=== PATIENT | female | born 1935 | race Caucasian/White ===

== ENCOUNTER → 2024-04-22 15:25 | Outpatient (REF) | payer MEDICARE, OTHER, SELFPAY | LOC: RCS 15:25 | PROVIDERS: ATTENDING PHYSICIAN Family Medicine | DX: I35.0 Nonrheumatic aortic (valve) stenosis (principal); R00.2 Palpitations | CPT/HCPCS: 93005; 93306 ==

== ENCOUNTER → 2024-07-17 14:42 | Outpatient (REF) | payer MEDICARE, OTHER, SELFPAY | LOC: RAD 14:42 | PROVIDERS: ATTENDING PHYSICIAN Family Medicine | DX: R06.09 Other forms of dyspnea (principal) | CPT/HCPCS: 71046 ==

== ENCOUNTER → 2024-07-18 09:47 | Outpatient (REF) | payer MEDICARE, OTHER, SELFPAY ==
[2024-07-18 10:06] LABS: % Basophils 0.3 % (0-2); % Eosinophils 2.7 % (0-6); % Immature Granulocytes 0.2 % (0-0.5); % Lymphocytes 26.4 % (20.5-51.1); % Monocytes 9.3 % (1.7-9.3); % Neutrophils 61.1 % (42.2-75.2); Absolute Eosinophils 0.2 10^3/uL (0-0.7); Absolute Lymphocytes 1.5 10^3/uL (1.2-3.4); Absolute Monocytes 0.5 10^3/uL (0.1-0.6); Absolute Neutrophils 3.6 10^3/uL (1.4-6.5); Hematocrit 39.8 % (37.0-47.0); Hemoglobin 13.4 g/dL (12.0-16.0); Mean Corp Hgb Conc. 33.7 g/dL (33.0-37.0); Mean Corpuscular Hgb 31.2 pg (27.0-31.0); Mean Corpuscular Volume 92.6 fL (81.0-99.0); Mean Platelet Volume 10.2 fL (7.4-10.4); Nucleated Red Blood Cells % 0 %; Platelet Count 190 10^3/uL (130-400); Red Cell Dist. Width 14.1 % (11.5-14.5); White Blood Cell Count 5.8 10^3/uL (4.8-10.8)
[2024-07-18 10:35] LABS: ALT (SGPT) 22 U/L (0-35); AST (SGOT) 34 U/L (14-36); Albumin 3.7 g/dl (3.5-5.0); Alkaline Phosphatase 64 U/L (38-126); Blood Urea Nitrogen 35 mg/dl (7-17); Calcium 9.3 mg/dl (8.4-10.2); Carbon Dioxide 27 mmol/L (22-30); Chloride 105 mmol/L (98-107); Glucose 136 mg/dl (70-99); Potassium 4.3 mmol/L (3.5-5.1); Sodium 142 mmol/L (135-145); Total Bilirubin 1.6 mg/dl (0.2-1.3); Total Protein 6.2 g/dl (6.3-8.2); eGFR > 60.00
== END ==
LOC: HWRAD 09:47
PROVIDERS: ATTENDING PHYSICIAN Family Medicine; FAMILY PHYSICIAN Family Medicine
DX: R50.9 Fever, unspecified (principal); R06.02 Shortness of breath
CPT/HCPCS: 36415; 71260; 80053; 85025; Q9967

== ENCOUNTER 2024-07-23 19:51 | Inpatient (IN) | payer MEDICARE, OTHER, SELFPAY ==
[2024-07-23 16:38] VITALS: BP 204/67
--- NOTE | 2024-07-23 16:38 | ED.GENMED ---
ED Provider Triage
<Lolly Vincent PA-C - Last Filed: 07/23/24 16:40>
-
Patient seen by provider in Triage?: Seen in Triage
88-year-old female coming from her primary care office for episodes of shortness of breath off and on for the last month.
He did an EKG in the office and there is concern that she is in heart block.
Patient is ultimately asymptomatic currently. She is not having any chest pain.
Her family doctor spoke with Dr. Lane regarding her EKG that was concerning
A medical screening examination has been initiated by a qualified medical provider. Based on the assessment performed at this time, it has been determined that an emergent medical condition may exist and the patient has been informed that further
medical evaluation and possible additional diagnostic testing may be needed.
HPI: This is a medical evaluation conducted in person to initiate diagnostic evaluation and provide initial therapeutics. Please see further documentation by the treating clinician.
GENERAL: Alert , in no apparent distress
ENT: No visible abnormalities
LUNGS: No acute respiratory distress
NEUROLOGICAL: Alert and oriented
SKIN: Skin intact. No visible changes.
MUSCULOSKELETAL: Moving extremities normally
PSYCH: Normal and appropriate interaction.
EKG reviewed, appears like third-degree heart block. Patient is hypertensive, asymptomatic. Bradycardic. Will bring her immediately to a room.
History of Present Illness
<Lolly Vincent PA-C - Last Filed: 07/23/24 16:40>
General
Chief Complaint: Cardiac Symptoms
Source: patient
Exam Limitations: none
Time Seen by Provider: 07/23/24 16:59
Nursing documentation reviewed up to this point in time: agreed with
<Kendrick Brush DO - Last Filed: 07/23/24 20:15>
History of Present Illness
History of Present Illness:
Patient is a 88-year-old female who was sent to the emergency department by her primary care physician for bradycardia and third-degree heart block. Patient has noted over the past couple of months of increasing fatigue especially with exertion.
Patient denies any fever or chills, nasal congestion, sore throat or cough. Patient has noted some wheezing in the morning but other than that no problems. Patient denies any chest pain or palpitations. Patient denies shortness of breath.
Patient denies any GI or symptoms. Patient denies any lower extremity swelling. Patient past medical history is rather unremarkable and only takes Motrin and vitamin D.
Past History
<Kendrick Brush DO - Last Filed: 07/23/24 20:15>
Past History
ED Past Medical History: Asthma and Other (DJD)
Social History
Tobacco: Former smoker
Review of Systems
<Kendrick Brush DO - Last Filed: 07/23/24 20:15>
Review of Systems
All Other Systems: ROS reviewed and negative except as documented in HPI and ROS
Constitutional: Reports fatigue; Denies fever or chills
EENT: Reports no symptoms
Respiratory: Reports no symptoms
Cardiac: Reports no symptoms
ABD/GI: Reports no symptoms
: Reports no symptoms
Musculoskeletal: Reports no symptoms
Skin: Reports no symptoms
Neurological: Reports no symptoms
Hematologic/Lymphatic: Reports no symptoms
Psychiatric: Reports no symptoms
Phy Exam
<Kendrick Brush DO - Last Filed: 07/23/24 20:15>
Physical Exam
Physical Exam:
Physical Exam
General: No apparent distress, alert and appropriate, elderly and frail, well hydrated
HENT: Normocephalic, supple with no lymphadenopathy, no thyromegaly
Eyes: Clear sclera, conjuctiva without injection
Heart: Regular rhythm and bradycardic rate. No S3, S4. Grade 3/6 holosystolic harsh murmur heard best at the base.. No NVD
Lungs: No respiratory distress, no stridor, lung sounds clear and equal bilaterally
Abdomen: Soft, nontender, no organomegaly, no CVA tenderness, BS good
Neuro: Alert and oriented x 3, CN II - XII intact, no motor focality, no cerebellar dysfunction
Skin: no rash
Psychiatric: well kept. interactive and cooperative
Extremities: No cyanosis, tenderness. +1-2 pitting edema pretibially, ankles and feet bilaterally
Musculoskeletal: Significant thoracic kyphoscoliosis
Course
<Lolly Vincent PA-C - Last Filed: 07/23/24 16:40>
Orders/Labs/Results
Orders:
Orders
07/23/24 16:27
EKG [Electrocardiogram (*1)] Urgent
Reason for Study: Other
Other Reason for Exam: abnormal EKG
EKG- Treatment ONCE
07/23/24 16:59
Complete Blood Count/With Diff Urgent
Comprehensive Metabolic Panel Urgent
TSH Urgent
Troponin I Urgent
07/23/24 17:29
PTT Urgent
07/23/24 19:00
Consult Cardiology [CARDIOLOGY CONSULT] Routine
Consulting Provider: Glenn Zee
Was physician already notified: Yes
07/23/24 19:08
Admit/Transfer Patient As Directed
Co-Sign Provider:
Level of Care: Inpatient admission
Assign to:: IVU
Physician / Group: Luis Felipe Vasquez
Diagnosis: Complete Heart Block
Reason for Hospitalization: Complete Heart Block
Expected length of stay greater than two midnights?: Yes
ELOS- Estimated Length of Stay in days: 3
I certify the patient meets the requirements for IP care: Yes
07/23/24 19:09
Code Status As Directed
Resuscitation Status: Full Code
PRN Pain Medication Management As Directed
May give lesser potent ordered pain med per pt: Yes
preference::
Protocol:: Medication orders for pain may be administered in a
manner that supports deferring to patient preference
when the pt is:
- Requesting an ordered lesser potent pain medication.
Least to most potent pain medications are defined
as: acetaminophen < NSAID < tramadol < opioids
(morphine, oxycodone, hydromorphone).
- Requesting a lesser dose of the same medication IF
ORDERED.
- Requesting a less intrusive route of administration
if both routes are prescribed by the provider (PO <
IV).
07/24/24 Breakfast
NPO
Allow oral meds: Yes
Allow clear liquids: Sips of Clears
Abnormal Lab Results
07/23/24 07/23/24
16:59 17:29
MCHC 32.0 L g/dL
(33.0-37.0)
APTT 35.5 H Sec
(23.4-35.0)
BUN 32 H mg/dl
(7-17)
07/23/24 16:59
07/23/24 16:59
Vital Signs
Initial and Last Documented VS:
Initial Vital Signs
Temp Pulse Resp BP Pulse Ox
98.2 F 43 16 204/67 99
07/23/24 16:38 07/23/24 16:38 07/23/24 16:38 07/23/24 16:38 07/23/24 16:38
Last Documented Vital Signs
Temp Pulse Resp BP Pulse Ox
98.2 F 54 18 183/55 96
07/23/24 16:38 07/23/24 19:45 07/23/24 19:45 07/23/24 17:01 07/23/24 19:45
<Kendrick Brush DO - Last Filed: 07/23/24 20:15>
Orders/Labs/Results
Orders:
Orders
07/23/24 16:27
EKG [Electrocardiogram (*1)] Urgent
Reason for Study: Other
Other Reason for Exam: abnormal EKG
EKG- Treatment ONCE
07/23/24 16:59
Complete Blood Count/With Diff Urgent
Comprehensive Metabolic Panel Urgent
TSH Urgent
Troponin I Urgent
07/23/24 17:29
PTT Urgent
07/23/24 19:00
Consult Cardiology [CARDIOLOGY CONSULT] Routine
Consulting Provider: Glenn Zee
Was physician already notified: Yes
07/23/24 19:08
Admit/Transfer Patient As Directed
Co-Sign Provider:
Level of Care: Inpatient admission
Assign to:: IVU
Physician / Group: Luis Felipe Vasquez
Diagnosis: Complete Heart Block
Reason for Hospitalization: Complete Heart Block
Expected length of stay greater than two midnights?: Yes
ELOS- Estimated Length of Stay in days: 3
I certify the patient meets the requirements for IP care: Yes
07/23/24 19:09
Code Status As Directed
Resuscitation Status: Full Code
PRN Pain Medication Management As Directed
May give lesser potent ordered pain med per pt: Yes
preference::
Protocol:: Medication orders for pain may be administered in a
manner that supports deferring to patient preference
when the pt is:
- Requesting an ordered lesser potent pain medication.
Least to most potent pain medications are defined
as: acetaminophen < NSAID < tramadol < opioids
(morphine, oxycodone, hydromorphone).
- Requesting a lesser dose of the same medication IF
ORDERED.
- Requesting a less intrusive route of administration
if both routes are prescribed by the provider (PO <
IV).
07/24/24 Breakfast
NPO
Allow oral meds: Yes
Allow clear liquids: Sips of Clears
Abnormal Lab Results
07/23/24 07/23/24
16:59 17:29
MCHC 32.0 L g/dL
(33.0-37.0)
APTT 35.5 H Sec
(23.4-35.0)
BUN 32 H mg/dl
(7-17)
07/23/24 16:59
07/23/24 16:59
Vital Signs
Initial and Last Documented VS:
Initial Vital Signs
Temp Pulse Resp BP Pulse Ox
98.2 F 43 16 204/67 99
07/23/24 16:38 07/23/24 16:38 07/23/24 16:38 07/23/24 16:38 07/23/24 16:38
Last Documented Vital Signs
Temp Pulse Resp BP Pulse Ox
98.2 F 54 18 183/55 96
07/23/24 16:38 07/23/24 19:45 07/23/24 19:45 07/23/24 17:01 07/23/24 19:45
<Kendrick Brush, DO - Last Filed: 07/23/24 20:15>
*Radiology
Radiology exam reviewed: other (na)
*Pulse Oximetry
Patient hypoxic: no
*EKG
Interpreted by ED Provider?: Yes
EKG Intrepretation Date: 07/23/24
EKG Intrepretation Time: 17:51
Interpretation: abnormal
Comparison EKG: no comparison EKG present
Heart Rate: 42
Rate: bradycardiac
Rhythm: other (Third-degree heart block)
[place]: normal axis
Interval: normal QT interval
QRS Pattern: normal QRS
Ischemia: no ischemia
*Dry Heat Room Attendant Interpretation
Rate: bradycardiac
Interpretation: abnormal
Heart Rate: 45
Rhythm: other (Third-degree heart block)
*Critical Care Note
Total Time (30-74mins, 75-104mins- exclusive of procedures): 35 minutes
ED Attending Note
<Lolly Vincent PA-C - Last Filed: 07/23/24 16:40>
-
Portions of this chart may have been created with voice recognition software.� Occasional wrong word or��sound alike� substitutions may have occurred due to the inherent limitations of voice recognition software.
Discharge Plan
Departure
Patient Disposition: Admit
Date of Disposition: 07/23/24
Time of Disposition: 17:53
Admit to: IVU
Admit to doctor: Hospitalist
Presentation/result/management discussed w/ accepting MD/DO: [employer] Net Developer
Patient with high blood pressure during this ER visit?: Yes
Condition: Fair
Covid-19: Not Applicable
Discharge Problem:
Third degree heart block
Interventions
Interventions:
*Risk Screen - Suicide Last Done: 07/23/24 16:40
*General Assessment Last Done: 07/23/24 16:51
*Neglect/Abuse Screening Last Done: 07/23/24 16:40
ED- Fall Risk Assessment Last Done: 07/23/24 16:51
*ED COVID-19 Vaccine History Last Done: 07/23/24 17:24
ED- Pulmonary Assessment Last Done: 07/23/24 16:51
ED- Cardiac Assessment Last Done: 07/23/24 16:51
[2024-07-23 16:50] VITALS: BP 157/67
[2024-07-23 17:01] VITALS: BP 183/55
[2024-07-23 17:09] LABS: % Basophils 0.3 % (0-2); % Eosinophils 1.1 % (0-6); % Immature Granulocytes 0.3 % (0-0.5); % Monocytes 8.1 % (1.7-9.3); % Neutrophils 68.2 % (42.2-75.2); Absolute Eosinophils 0.1 10^3/uL (0-0.7); Absolute Lymphocytes 1.4 10^3/uL (1.2-3.4); Absolute Monocytes 0.5 10^3/uL (0.1-0.6); Absolute Neutrophils 4.4 10^3/uL (1.4-6.5); Hematocrit 43.1 % (37.0-47.0); Hemoglobin 13.8 g/dL (12.0-16.0); Mean Corpuscular Hgb 30.2 pg (27.0-31.0); Mean Corpuscular Volume 94.3 fL (81.0-99.0); Mean Platelet Volume 10.3 fL (7.4-10.4); Nucleated Red Blood Cells % 0 %; Platelet Count 208 10^3/uL (130-400); Red Blood Cell Count 4.57 10^6/uL (4.20-5.40); Red Cell Dist. Width 14.2 % (11.5-14.5); White Blood Cell Count 6.4 10^3/uL (4.8-10.8)
[2024-07-23 17:21] LABS: ALT (SGPT) 22 U/L (0-35); AST (SGOT) 32 U/L (14-36); Albumin 4.4 g/dl (3.5-5.0); Alkaline Phosphatase 85 U/L (38-126); Blood Urea Nitrogen 32 mg/dl (7-17); Calcium 9.6 mg/dl (8.4-10.2); Carbon Dioxide 25 mmol/L (22-30); Chloride 104 mmol/L (98-107); Glucose 99 mg/dl (70-99); Potassium 4.5 mmol/L (3.5-5.1); Sodium 142 mmol/L (135-145); Total Bilirubin 1.1 mg/dl (0.2-1.3); eGFR > 60.00
[2024-07-23 17:33] LABS: Troponin I 0.025 ng/ml
[2024-07-23 17:48] LABS: APTT 35.5 Sec (23.4-35.0)
--- NOTE | 2024-07-23 17:52 | HPS.HSE ---
Family Physician
-
Family Physician: Pauline Hill
Chief Complaint
-
Abnormal EKG
History of Present Illness
Patient is a 88-year-old female with past medical history significant for hypercholesteremia, mitral valve regurgitation, and carotid artery insufficiency who presented to [facility] ED from primary care office that obtained an EKG that showed
concern for heart block. 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 A week ago on Monday when leaving hospital and walking to
car she stated she noticed the shortness a breath again and decided to see primary care, they saw her that day and ordered Chest X-ray and Chest CT which resulted with no concerns. At followup appoint with primary care today, they performed a EKG
that physician had concern for heart block so requested patient go to ED for evaluation. Patient denies any fever, chill, cough, chest pain, plapitations, dizziness, nausea, vomiting, constipation, diarrhea or urinary symptoms.
Medical History
Past Medical History
Past Medical History: Reports Other
Additional Past Medical History:
hypercholesteremia
mitral valve regurgitation
carotid artery insufficiency
Osteoarthritis
Past Surgical History: Reports Other
Additional Past Surgical History:
Total left knee replacement
Right hip replacement
Social History
Tobacco: Former Smoker (quit 62 years ago)
Alcohol: Occasional
Drug: None
Living: With Family
Employment: Retired
Family History
Family History: Not pertinent
Allergies / Home Medications
Allergies reflects when Allergies were last updated in [facility].
Home Medications with original date entered in [facility]
Allergy/Medication List:
Allergies
Allergy/AdvReac Type Severity Reaction Status Date / Time
No Known Allergies Allergy Unverified 04/11/17 08:56
Home Medications
cholecalciferol (vitamin D3) 25 mcg (1,000 unit) tablet 25 mcg PO DAILY 07/23/24
ibuprofen 200 mg tablet 200 mg PO HS 07/23/24
Review of Systems
-
History Source: Patient
Constitutional: Reports No Symptoms
EENT: Reports No Symptoms
Respiratory: Reports Other (shortness of breath)
Cardiac: Reports No Symptoms
Abdomen/GI: Reports No Symptoms
: Reports No Symptoms
Musculoskeletal: Reports No Symptoms
Skin: Reports No Symptoms
Neurological: Reports No Symptoms
Endocrine: Reports No Symptoms
Hematologic/Lymphatic: Reports No Symptoms
Psych: Reports No Symptoms
Physical Exam
Vital Signs
Vital Signs
Temp Pulse Resp BP Pulse Ox
98.2 F 47 15 183/55 98
07/23/24 16:38 07/23/24 17:45 07/23/24 17:45 07/23/24 17:01 07/23/24 17:45
Physical Exam
General: Well Developed, Well Nourished, No Apparent Distress, Comfortable and Conversant
HEENT: NormoCephalic, Moist mucous membranes, Atraumatic, [place] Conjunctivae, Nose Appears Normal and Ears Appear Normal
Respiratory: Clear and Non Labored Respirations; No Wheezes, Rales, Rhonchi or Crackles
Cardiac: S1/S2, Regular Rhythm and Murmur; No Rub or Gallop
GI: Soft, Non Tender, Non Distended and Normal Bowel Sounds; No Organomegaly
Rectal: Deferred by Provider
Genito-urinary: No costovertebral tender
Musculoskeletal: No Clubbing, No Cyanosis and No Edema
Skin: Warm and IV/Catheter Site; No Rash
Neuro: Awake, AO x 3, Nonfocal/grossly intact and Cranial Nerves Intact
Hematologic/Lymphatic: No Lymphadenopathy
Psych: Calm and Intact Judgment/Insight
Laboratory Results
-
07/23/24 16:59
07/23/24 16:59
Laboratory Results
Total Bilirubin 1.1 mg/dl (0.2-1.3) 07/23/24 16:59
AST 32 U/L (14-36) 07/23/24 16:59
ALT 22 U/L (0-35) 07/23/24 16:59
Alkaline Phosphatase 85 U/L (38-126) 07/23/24 16:59
Troponin I 0.025 ng/ml 07/23/24 16:59
Data Reviewed
-
Medical Tests (Nuc Med, Echo, EKG etc): Report Reviewed by me (EKG: SINUS RHYTHM with Type 2 second degree AV block mostly 2:1 conduction, junctioinal escape is present CANNOT RULE OUT ANTERIOR INFARCT , AGE UNDETERMINED)
Lab Data: Labs Reviewed by me
Impression/Plan
-
IMPRESSION/PLAN:
#Complete Heart block
EKG in primary office concerning for heart block
EKG: SINUS RHYTHM with Type 2 second degree AV block mostly 2:1 conduction,
junctioinal escape is present
CANNOT RULE OUT ANTERIOR INFARCT , AGE UNDETERMINED
- Admit to IVU
- Consult Cardiology (CBC)
- NPO after midnight for PPM
#Osteoarthritis
- uses ibuprofen HS at home
- PRN Tylenol
#Hypercholesteremia
#Mitral valve regurgitation
#Carotid artery insufficiency
Full Code
DVT Prophylaxis: SCDs
[2024-07-23 17:56] LABS: TSH 3.05 uIU/ml (0.47-4.68)
--- NOTE | 2024-07-23 18:42 | CON.CAR ---
Consultation
Consultation Request
Date/Time Consultation Requested: 07/23 17:00
Date/Time Consultation Performed: 07/23 18:30
Requesting Provider: Kendrick Brush MD
Performing Provider: Glenn Zee MD
Reason for Consultation: complete heart block
Medical History
-
Chief Complaint: Dyspnea on exertion
History of Present Illness:
Elli Belcher is an 88-year-old woman with a past medical history of hyperlipidemia and moderate aortic stenosis.
She has been experiencing dyspnea on exertion for the past month and was undergoing workup with her PCP. It was thought to be possibly due to pneumonia given low-grade fevers. Today she presented for PCP follow-up and was noted to have a low heart
rate. Twelve-lead ECG showed complete heart block and she was sent to the ER for admission.
Past Medical History
Past Medical History: Hypercholesterolemia and Valvular Disease (Moderate aortic stenosis, mild to moderate mitral regurgitation)
Social History
Tobacco: Non-Smoker
Employment: Retired
Family History
Family History: Reviewed & Not Pertinent
Allergies / Home Medications
Allergy/AdvReac Type Severity Reaction Status Date / Time
No Known Allergies Allergy Unverified 04/11/17 08:56
�Medication �Instructions �Recorded �Confirmed �Type
cholecalciferol (vitamin D3) 25 25 mcg PO DAILY 07/23/24 07/23/24 History
mcg (1,000 unit) tablet
ibuprofen 200 mg tablet 200 mg PO HS 07/23/24 07/23/24 History
Review of Systems
-
All other systems: Negative unless noted
Physical Exam
Vital Signs
Temp Pulse Resp BP Pulse Ox
98.2 F 47 15 183/55 98
07/23/24 16:38 07/23/24 17:45 07/23/24 17:45 07/23/24 17:01 07/23/24 17:45
Lab Results
07/23/24 16:59
07/23/24 16:59
Troponin I 0.025 ng/ml 07/23/24 16:59
ECG: Complete heart block with narrow junctional escape, poor R wave progression
Physical Exam
General: Well Developed and Well Nourished
HEENT: Normocephalic and Anicteric
Respiratory: Clear and Non Labored Respirations
Cardiac: S1/S2, Regular Rhythm (Bradycardia) and Murmur (2/6 harsh systolic murmur); Negative Peripheral Edema or JVD
Breast: Deferred by me
Musculoskeletal: Negative Edema
Skin: Warm and Dry
Neuro: AO x 3
Psych: Calm
Impression / Plan
-
Elli goddard is an 88-year-old female with hyperlipidemia and moderate aortic stenosis who presents with dyspnea on exertion, found to have complete heart block.
Complete heart block
-She is stable with a narrow junctional escape rhythm. She has dyspnea on exertion but is otherwise asymptomatic.
-No reversible causes identified. TSH normal. No risk factors for Lyme disease.
-We will plan for PPM tomorrow
-N.p.o. past midnight
-Continue to monitor on telemetry
-If overnight she developed symptoms including lightheadedness or syncope or if she becomes hypotensive, we will do an emergent temporary pacing wire but as of now she does not have an indication for this
Moderate aortic stenosis: present on admission, stable
Data Reviewed
-
EKG: Tracing Personally Visualized and interpreted, Discussed with Physician, Discussed with Patient and Discussed with Family
Medical Tests (Nuc Med, Echo etc): Report Reviewed by me
Labs: Labs Reviewed by me, Discussed with Physician, Discussed with Patient and Discussed with Family
Old Records: Reviewed
--- NOTE | 2024-07-23 19:27 | W.PN.UPDATE ---
Update Note
Progress Note Update
This note serves as an addendum to the H&P by bilingual research interviewer KELLI Ese Woods
HPI
88F HX HLD, MVR, carotid artery insufficiency seen at ER:
- PCP office visit EKG that showed concern for heart block with HR 40s
- reports progressive dyspnea with exertion.
- had CXR and Chest CT resulted with no concerns.
- At followup appoint with primary care today, they performed a EKG that physician had concern for heart block sent in to ED
ROS
Patient denies any fever, chill, cough, chest pain, plapitations, dizziness, nausea, vomiting, constipation, diarrhea or urinary symptoms.
PHX; as above
Vital Signs
Temp Pulse Resp BP Pulse Ox
98.2 F 64 17 183/55 97
07/23/24 16:38 07/23/24 18:30 07/23/24 18:30 07/23/24 17:01 07/23/24 19:00
PE
Gen: NAD, well preserved , well kempt
HEENT: anicteric
Neck: supple
Lungs: CTA
Cor: RRR S1 S2
Abdomen: soft benign
CONSUMER LOAN OFFICER: AAO3 NFND
MS: no edema
Psych: nl mood and nl affect
Data
Unremarkable CBC and CMP
NEG TPNI
Nl TSH
EKG
SINUS RHYTHM with Type 2 second degree AV block mostly 2:1 conduction,
junctional escape is present
CANNOT RULE OUT ANTERIOR INFARCT , AGE UNDETERMINED
ABNORMAL ECG
WHEN COMPARED WITH ECG OF 22-APR-2024 15:39,
High grade AV block is now present
VENT. RATE HAS DECREASED BY 40 BPM
MINIMAL CRITERIA FOR ANTERIOR INFARCT ARE NOW PRESENT
QT HAS SHORTENED
04/22/24 ECHO
LV ejection fraction is 60%
Stage I diastolic dysfunction
Mild to moderate mitral regurgitation.
Moderately dilated left atrium
Moderate aortic stenosis
The aortic valve by the Continuity equation is calculated at 0.9 cm sq using an LVOT diameter of 1.7 cm.
ASSESSMENT & PLAN
Complete heart block
- Nl TSH
- associated with [place] but otherwise asymptomatic.
- No reversible causes
- PPM per Card
- this NPO after MN
- If she become symptomatic such as presyncope, syncope, hypotensive for temper pacing per Card
- CBC card consult appreciated
Moderate aortic stenosis
Mild to moderate mitral regurgitation.
- present on admission, stable
HX Osteoarthritis
- uses ibuprofen HS at home
- PRN Tylenol
HX Hypercholesteremia : Not on statin
HX Carotid artery insufficiency
DVT Px: SCD
Full code
IVU
[2024-07-23 21:30] VITALS: BP 167/56
[2024-07-23] MEDS: FLUSH (NSS) 1 FLUSH IV (22:35)
[2024-07-23 23:15] VITALS: BP 121/95
[2024-07-24] VITALS (18 sets, daily range): BP systolic 116–171; BP diastolic 43–110; BMI 23.6
--- NOTE | 2024-07-24 00:29 | PTCARENOTE ---
Rec'd pt as new admission from ED RN. Pt awake, alert. Able to walk from stretcher to bed. Denies complaints at this time, but does report hx of arthritic pain. Cardiac rhythm appears to be mobitz type two with periods of third degree AV block. HR
as low as 37 at times. Pt denies symptoms. SaO2 96% on RA. Pt NPO. Defibrillator pads at bedside. Call fernandes within reach.
--- NOTE | 2024-07-24 04:33 | DOWNTIME ---
There was a [employer] Client Dredge Lever Operator Downtime on 07/24/2024 from 0100 to 07/24/2024 at 0350. Downtime documentation of patient's care, including medication administrations, has been reconciled in the electronic record per guidelines. Refer to the
patient's paper chart under the miscellaneous tab to see printed paper medication records and downtime forms.
[2024-07-24 04:50] LABS: Hematocrit 40.4 % (37.0-47.0); Hemoglobin 13.4 g/dL (12.0-16.0); Mean Corp Hgb Conc. 33.2 g/dL (33.0-37.0); Mean Corpuscular Hgb 30.7 pg (27.0-31.0); Mean Corpuscular Volume 92.4 fL (81.0-99.0); Mean Platelet Volume 10.4 fL (7.4-10.4); Platelet Count 201 10^3/uL (130-400); Red Blood Cell Count 4.37 10^6/uL (4.20-5.40); Red Cell Dist. Width 14.1 % (11.5-14.5); White Blood Cell Count 6.1 10^3/uL (4.8-10.8)
[2024-07-24 05:04] LABS: Blood Urea Nitrogen 26 mg/dl (7-17); Calcium 9.2 mg/dl (8.4-10.2); Carbon Dioxide 21 mmol/L (22-30); Chloride 108 mmol/L (98-107); Estimated Creatinine Clearance 33 ml/min; Glucose 92 mg/dl (70-99); Potassium 4.8 mmol/L (3.5-5.1); Sodium 141 mmol/L (135-145); eGFR > 60.00
--- NOTE | 2024-07-24 07:44 | W.PN.CD ---
Today's Communication / Plan
-
- PPM planned for today
- Repeat ECHO
Impression / Plan
-
Elli goddard is an 88-year-old female with hyperlipidemia and moderate aortic stenosis who presents with dyspnea on exertion, found to have complete heart block.
Complete heart block
-She is stable with a narrow junctional escape rhythm in high 30s to 40s. Exertional symptoms but asymptomatic at rest.
-No reversible causes identified. TSH normal. No risk factors for Lyme disease.
-ECHO 04/22/2024 showed LVEF 60% - Moderate - mean gradient 20 mmHg.
-We will plan for PPM today
-N.p.o. past midnight
-Continue to monitor on telemetry
Moderate aortic stenosis:
present on admission, stable
Hypertension
- Related to CHB and bradycardia.
Physical Exam
Vital Signs/Labs
Vital Signs
Temp Pulse Resp BP Pulse Ox
98.4 F 74 23 162/43 95
07/24/24 07:32 07/24/24 06:00 07/24/24 06:02 07/24/24 06:02 07/24/24 00:00
07/23/24 07/24/24 07/25/24
06:59 06:59 06:59
Actual Weight 51.2 kg
07/24/24 04:27
07/24/24 04:27
APTT 35.5 Sec (23.4-35.0) H 07/23/24 17:29
TSH 3.05 uIU/ml (0.47-4.68) 07/23/24 16:59
LAB Results
07/23/24
16:59
Troponin I 0.025
Physical Exam
Constitutional: No acute distress and Comfortable
EENT: Anicteric and Moist mucous membranes
Cardiovascular: Rhythm & rate is regular, Pedal edema is absent and JVD pressure is normal
Respiratory: Respiratory effort normal, Lungs clear to auscul. and Wheeze Absent
GI: Soft, Non tender and Normal bowel sounds
Neuro/Psych: Alert, Oriented and AO x 3
Data Reviewed
-
Date of Service: July 24, 2024
Medical Decision Making: Reviewed Test Results
EKG: Tracing Personally Visualized and interpreted
Echo: Report Reviewed by me
Labs: Labs Reviewed by me
Old Records: Reviewed
--- NOTE | 2024-07-24 08:00 | PTCARENOTE ---
Patient received from manager shift. Patient resting comfortably in bed. AAO, VSS aside from Second Degree heart block. Patient scheduled for Pacemaker today and remains NPO. Call fernandes in reach.
--- NOTE | 2024-07-24 10:17 | W.PN.UPDATE ---
Update Note
Progress Note Update
Met with patient and her daughter at the bedside. She has a month of exertional dyspnea. She presented with complete heart block and narrow escape in the 30s to 40s. She is not asymptomatic when at rest. No recent syncope or near syncope. I
discussed with patient and daughter the left-sided pacemaker implantation with a 1 of thousand risk of and a 1% risk of pneumothorax tamponade infection or bleeding. She is slightly higher risk given her BMI and scoliosis. I did discuss that
with patient and daughter at the bedside. We will plan dual-chamber pacemaker implantation today. She is normal ejection fraction and moderate and can proceed without further testing. The patient signed informed consent and predevice orders
are in.
--- NOTE | 2024-07-24 13:47 | W.PN.HOSP.TC ---
Today's Communication/Plan
-
For pacemaker placement.
Assessment / Plan
Assessment / Plan
Impression:
Presentation with exertional dyspnea.
Complete heart block
Hypertension
Other conditions:
Moderate aortic stenosis.
Plan:
Symptomatic complete heart block.
Patient presents with exertional dyspnea baseline hemodynamically stable/hypertensive at rest.
Stable respiratory status.
Cardiology input appreciated
Patient is scheduled for permanent pacemaker placement
Reassess hemodynamics after
Moderate aortic stenosis
Recent echo with preserved EF.
Anticipated Discharge: 24 - 48 hours
Subjective/Interval History
-
Date of Service: July 24, 2024
Objective Data
-
Labs:
Laboratory Results
07/24/24
04:27
WBC 6.1
Hgb 13.4
Hct 40.4
Plt Count 201
Sodium 141
Potassium 4.8
Chloride 108 H
Carbon Dioxide 21 L
BUN 26 H
Creatinine 0.8
Glucose 92
Calcium 9.2
Vital Signs:
Vital Signs
Temp Pulse Resp BP Pulse Ox
98.0 F 74 23 162/43 96
07/24/24 11:20 07/24/24 06:00 07/24/24 06:02 07/24/24 06:02 07/24/24 12:11
I&O
07/23/24 07/24/24 07/25/24
06:59 06:59 06:59
Intake Total 120 / 120
Balance 120 / 120
Physical Exam
-
General: Well Developed and No Apparent Distress
HEENT: Normocephalic, Atraumatic and Moist Mucous Membranes
Respiratory: Clear to Auscultation
Cardiac: Regular Rhythm, S1/S2 and Murmur (Left sternal border, systolic); Negative Rub or Gallop
GI: Soft, Nontender, Nondistended and Normal Bowel Sounds; Negative Organomegaly
Rectal: Deferred by Provider
Musculoskeletal: No Clubbing, No Cyanosis and No Edema
Skin: Negative Rash
Neuro: Nonfocal/Grossly Intact
--- NOTE | 2024-07-24 14:24 | ITS.CL.PACE ---
[facility] - Pacemaker Implant
Pacemaker Implant
Procedure Report:
Date of Procedure: July 24, 2024
Patient : 1935
Procedure: Pacemaker Implantation.
Indication: Complete heart block
�
Implants:
Pulse Generator: Medtronic; Model# W1 DR 01; SN: [id number]
RA Lead: Medtronic; Model# 4574; SN: [id number]
RV Lead: Medtronic; Model# 4074; SN: [id number]
�
Technique: A time out was performed. The procedure site was identified. The patient was anesthetized by the anesthesia service. Preoperative sedation was administered. The patient was prepped and draped in the usual fashion. Local anesthetic was
applied to the left prepectoral subcutaneous tissue. A 3 inch incision was made 2.5 inches below the left clavicle. A subcutaneous pocket was created with blunt and sharp dissection and hemostasis controlled with Bovie cautery. The left axillary
vein was accessed within the pocket without difficulty. Hemostasis was excellent. The leads were introduced with 7 Fr hemostatic peel away introducer sheaths. The ventricular lead was placed at the right ventricular apex. The atrial lead was placed
in the right atrial appendage. 10 volt pacing did not capture the diaphragm. The leads were secured to the pectoralis muscle and fascia. The leads were appropriately attached to the device. The pocket was irrigated with antibiotic solution. The
device and leads were placed in the pocket. The incision was closed in three layers with absorbable suture. The estimated blood loss was minimal. There were no complications.��
Pulse fluoroscopy: 4.2 minutes
Lead Analysis:
RA lead: P: 2.25 mV; Threshold: 1.5 V @ 0.5��ms; Impedance: 740 ohms.
RV lead: R: 6.0 mV; Threshold: 0.5 V @ 0.5��ms; Impedance: 920 ohms.
�
Final Programming: DDD 60 to 130 bpm
�
Conclusion: Uncomplicated Medtronic pacemaker implant.
�
Recommendation: Routine post pacemaker care.
�
--- NOTE | 2024-07-24 17:00 | CM ---
CM following for DC planning needs.
Met w/ patient at bedside to complete initial assessment.
Pt. resides w/ her son in a private, multi level home. She is functionally indep. at baseline w/ ADLs, mobility without the use of any assisted device.
Plan is for DC to home without any needs.
Will remain available for DC needs.
--- NOTE | 2024-07-24 17:07 | PTCARENOTE ---
Assumed care of pt post PPM insertion. Pt received awake and alert, Ox3. VSS, CM shows V-pacing 70's, POX 93% on RA. Left PPM site Aquacel CDI, no hematoma noted, arm immobilizer in tact. She denies any pain or discomfort.
--- NOTE | 2024-07-24 17:42 | W.PN.UPDATE ---
Update Note
Progress Note Update
Chest x-ray reviewed with leads in stable position in the right atrium and right ventricle. I communicated with Dr. Zee and Dr. Carson who will arrange outpatient wound check in the office. Appropriate atrial sensing and ventricular pacing
on telemetry and ECG. I have no objection to discharge tomorrow if she has a stable overnight and she should remain in the sling for 24 hours and I went over driving and post procedure device restrictions with patient and daughter at the bedside.
--- NOTE | 2024-07-24 20:40 | PTCARENOTE ---
Patient OOB to chair at this time. No pain. Left Chest PPM site CDI/ left arm on immobilizer. V-paced rhythm. POC reviewed with patient.
[2024-07-24] MEDS: ANCEF 5 IV (21:39)
[2024-07-25 02:57] VITALS: BP 145/59
[2024-07-25 03:32] LABS: Hematocrit 38.1 % (37.0-47.0); Hemoglobin 12.9 g/dL (12.0-16.0); Mean Corp Hgb Conc. 33.9 g/dL (33.0-37.0); Mean Corpuscular Hgb 30.9 pg (27.0-31.0); Mean Corpuscular Volume 91.1 fL (81.0-99.0); Mean Platelet Volume 10.2 fL (7.4-10.4); Platelet Count 187 10^3/uL (130-400); Red Blood Cell Count 4.18 10^6/uL (4.20-5.40); Red Cell Dist. Width 13.9 % (11.5-14.5); White Blood Cell Count 5.5 10^3/uL (4.8-10.8)
[2024-07-25 03:59] LABS: Blood Urea Nitrogen 35 mg/dl (7-17); Calcium 8.8 mg/dl (8.4-10.2); Carbon Dioxide 24 mmol/L (22-30); Chloride 105 mmol/L (98-107); Estimated Creatinine Clearance 33 ml/min; Glucose 159 mg/dl (70-99); Potassium 4.7 mmol/L (3.5-5.1); Sodium 140 mmol/L (135-145); eGFR > 60.00
[2024-07-25] MEDS: ANCEF 5 IV (05:27)
[2024-07-25 07:39] VITALS: BP 151/64
--- NOTE | 2024-07-25 08:01 | PTCARENOTE ---
The patient is aaox3, vss, 96% on RA. V-pacing is noted on the monitor. Her left chest wall dressing is c/d/i. She has no complaints of pain or SOB. I instructed the patient on her activity restrictions. Her call fernandes is with reach.
--- NOTE | 2024-07-25 09:12 | W.PN.CD ---
Today's Communication / Plan
-
ok for discharge
start amlodipine 2.5mg daily
device restrictions on discharged
office will call with appt
Impression / Plan
-
Elli goddard is an 88-year-old female with hyperlipidemia and moderate aortic stenosis who presents with dyspnea on exertion, found to have complete heart block.
Complete heart block
-She is stable with a narrow junctional escape rhythm in high 30s to 40s. Exertional symptoms but asymptomatic at rest.
-No reversible causes identified. TSH normal. No risk factors for Lyme disease.
-ECHO 04/22/2024 showed LVEF 60% - Moderate - mean gradient 20 mmHg.
-s/p Medtronic dual-chamber pacemaker 07/24/2024.
Moderate aortic stenosis:
present on admission, stable
f/u with Dr Zee
Hypertension
-persists, will add low dose amlodipine
- Related to CHB and bradycardia.
Subjective:
She feels great without complaint, no significant pain at site.
Data:
Implants:
Pulse Generator: [employer]; Model# W1 DR 01; SN: [id number]
RA Lead: Medtronic; Model# 4574; SN: BB [id number]
RV Lead: Medtronic; Model# 4074; SN: [id number] [id number]
�
Technique: A time out was performed. The procedure site was identified. The patient was anesthetized by the anesthesia service. Preoperative sedation was administered. The patient was prepped and draped in the usual fashion. Local anesthetic was
applied to the left prepectoral subcutaneous tissue. A 3 inch incision was made 2.5 inches below the left clavicle. A subcutaneous pocket was created with blunt and sharp dissection and hemostasis controlled with Bovie cautery. The left axillary
vein was accessed within the pocket without difficulty. Hemostasis was excellent. The leads were introduced with 7 Fr hemostatic peel away introducer sheaths. The ventricular lead was placed at the right ventricular apex. The atrial lead was placed
in the right atrial appendage. 10 volt pacing did not capture the diaphragm. The leads were secured to the pectoralis muscle and fascia. The leads were appropriately attached to the device. The pocket was irrigated with antibiotic solution. The
device and leads were placed in the pocket. The incision was closed in three layers with absorbable suture. The estimated blood loss was minimal. There were no complications.��
Pulse fluoroscopy: 4.2 minutes
Lead Analysis:
RA lead: P: 2.25 mV; Threshold: 1.5 V @ 0.5��ms; Impedance: 740 ohms.
RV lead: R: 6.0 mV; Threshold: 0.5 V @ 0.5��ms; Impedance: 920 ohms.
�
Final Programming: DDD 60 to 130 bpm
�
Conclusion: Uncomplicated Medtronic pacemaker implant.
�
Recommendation: Routine post pacemaker care.
Physical Exam
Vital Signs/Labs
Vital Signs
Temp Pulse Resp BP Pulse Ox
98.1 F 61 20 151/64 96
07/25/24 07:37 07/25/24 08:00 07/25/24 07:37 07/25/24 07:39 07/25/24 07:37
07/24/24 07/25/24 07/26/24
06:59 06:59 06:59
Actual Weight 51.2 kg
07/25/24 03:15
07/25/24 03:15
APTT 35.5 Sec (23.4-35.0) H 07/23/24 17:29
TSH 3.05 uIU/ml (0.47-4.68) 07/23/24 16:59
LAB Results
07/23/24
16:59
Troponin I 0.025
Physical Exam
Constitutional: No acute distress
Cardiovascular: Rhythm & rate is regular, Pedal edema is absent, JVD pressure is normal, Diastolic murmur absent, Rhythm/rate is irregular and Systolic murmur present (2 out of 6 crescendo decrescendo murmur at the right upper sternal border)
Respiratory: Respiratory effort normal, Lungs clear to auscul. and Wheeze Absent
GI: Soft
Neuro/Psych: AO x 3
Data Reviewed
-
Date of Service: July 25, 2024
Medical Decision Making: Review of Case with other Provider (Discussed with Dr. Garcia and resident physician okay for discharge today on low-dose amlodipine.)
EKG: Other
X-Ray/CT/US/MRI/NUC/PET: Report Reviewed by me (No pneumothorax leads in appropriate place)
[2024-07-25] MEDS: NORVASC 2.5 MG PO (09:30)
--- NOTE | 2024-07-25 09:56 | W.PN.HOSP.TC ---
Today's Communication/Plan
-
Discharge home
Assessment / Plan
Assessment / Plan
Patient is an 88-year-old female with past medical history of hyperlipidemia and moderate aortic stenosis who presented to [facility] with heart block. She is currently status post pacemaker placement on 07/24.
#Symptomatic complete heart block
Status post dual-chamber pacemaker placement on 07/24
Echo on 04/22 showed LVEF of 60% and moderate aortic stenosis.
#Moderate aortic stenosis
Continue to follow-up outpatient with Dr. Zee
#Hypertension
Cardiology recommendation, addition of low-dose amlodipine today
Secondary to CHB and bradycardia
Full code
Anticipated Discharge: Today
Subjective/Interval History
-
Date of Service: July 25, 2024
Patient is an 88-year-old female with past medical history of hyperlipidemia and moderate aortic stenosis who presented to [facility] with dyspnea and heart. She is status 06/28. She reports no acute events overnight
Objective Data
-
Labs:
Laboratory Results
07/25/24
03:15
WBC 5.5
Hgb 12.9
Hct 38.1
Plt Count 187
Sodium 140
Potassium 4.7
Chloride 105
Carbon Dioxide 24
BUN 35 H
Creatinine 0.8
Glucose 159 H
Calcium 8.8
Vital Signs:
Vital Signs
Temp Pulse Resp BP Pulse Ox
98.1 F 61 20 151/64 96
07/25/24 07:37 07/25/24 08:00 07/25/24 07:37 07/25/24 07:39 07/25/24 07:37
I&O
07/24/24 07/25/24 07/26/24
06:59 06:59 06:59
Intake Total 120 / 120
Balance 120 / 120
Review of Systems
-
History Source: Patient
All other systems: Reviewed and negative
Musculoskeletal: Reports Muscle Pain (Mild near site of incision)
Physical Exam
-
General: Well Developed, No Apparent Distress, Comfortable and Conversant
HEENT: Normocephalic and Atraumatic
Respiratory: Clear to Auscultation
Cardiac: Regular Rhythm and S1/S2
GI: Soft, Nontender and Nondistended
Musculoskeletal: No Clubbing, No Cyanosis and No Edema
Neuro: AO x 3
Psych: Calm
Data Reviewed
-
Diagnostic Radiology: Report Reviewed by me
Medical Tests (Nuc Med, Echo etc): Report Reviewed by me
Labs: Labs Reviewed by me
Old Records: Reviewed
--- NOTE | 2024-07-25 10:12 | W.DCSUMMARY ---
Documented by User: Milagros Hickman DO, Resident 07/25/24 14:17
Discharge Summary
Discharge Data
Date of Admission: 07/23/24
Date of Discharge: 07/25/24
Total time spent discharging patient (in min): 35
-
Pending Results: No
Hospital Course
Presenting symptom: Dyspnea
Hospital diagnosis: Complete heart block
Hospital course:Patient is an 88-year-old female with past medical history of hypercholesterolemia, mitral valve regurgitation, carotid artery insufficiency, hyperlipidemia and moderate aortic stenosis who presented to [facility] with
dyspnea and heart block. Patient has been having intermittent dyspnea since May and was sent to [facility] after primary care physician performed an EKG with concern of heart block. Echo showed normal left ventricular size and
systolic function with LVEF of 60 to 65%. Hypokinesis of the basal to mid inferolateral and anterolateral chong with normal RV size and function. Severely dilated left atrium. Compared to prior echo on 04/22/2024, patient was in a complete heart
block. Cardiology saw patient and noted that she was stable with a narrow junctional escape rhythm in high 30s to 40s. Patient had a biventricular permanent pacemaker placed on 07/24. Procedure had no complications and patient reported no pain
afterwards. Blood pressure was mildly elevated on 07/25 so cardiology decided to add low-dose amlodipine to regiment. Patient stable for discharge to home.
#Symptomatic complete heart fupnb-[id number] pacemaker placed on 07/24. Cardiology will follow-up with patient for incision check.
#Moderate aortic stenosis- Continue to follow-up outpatient with Dr. Zee
#Lpfuimjdqecl-ynf-bxyv amlodipine added to home regimen for daily management of blood pressure.
-----
Imaging reviewed during hospital admission:
Echo 07/24:
CONCLUSIONS
Normal left ventricular size and systolic function. LVEF 60-65%.
Hypokinesis of the basal to mid inferolateral and anterolateral chong.
Normal RV size and function.
Severely dilated left atrium.
Mild to moderate mitral regurgitation.
Moderate to severe aortic stenosis (peak/mean 58/29 mmHg, SHAHNAZ 0.9 cm2, DVI
0.4).
Mild to moderate aortic regurgitation.
Elevated pulmonary artery systolic pressure (54 mmHg).
Compared to prior echocardiogram on 04/22/2024, patient is now in complete heart
block which complicates direct comparison. Aortic valve gradients have
increased which is likely due to increased flow across the valve in the setting
of bradycardia. SHAHNAZ and DVI are stable. Regional wall motion abnormalities
are more severe in the anterolateral wall, but inferolateral wall looks similar
on direct comparison. PASP has increased from 27 mmHg to 54 mmHg, but this is
also elevated today at least partially due to patient's complete heart block.
Chest x-ray 07/24:
FINDINGS/impression:
Left-sided dual-lead cardiac pacemaker has been placed. Lead tip positions in the region of the superior aspect of the right atrium, and overlying the expected location of the right ventricle. No pneumothorax. No other significant change.
Discharge Plan
-
Patient Disposition: Home (Routine Discharge)
Discharge Diagnosis/Procedures: heart block
Condition: Fair
Diet: As tolerated
Activity: No strenuous activity
Additional Activity: see device instructions
Driving Restrictions: No driving for 1 week
Activity Restrictions/Additional Instructions:
See device instructions
Stand Alone Forms: DC Inst - Implanted Device
Referrals:
Glenn Zee MD [Active] - (Office will call with device check in appointment)
Pauline Hill MD [Family Provider] - in one to two weeks
Prescriptions:
New
acetaminophen 325 mg Tablet
650 mg PO Q4HPRN PRN (Reason: MILD PAIN) Qty: 24 0RF
amlodipine 2.5 mg tablet
2.5 mg PO DAILY Qty: 90 0RF
Continued
cholecalciferol (vitamin D3) 25 mcg (1,000 unit) Tablet
25 mcg PO DAILY
Held
ibuprofen 200 mg Tablet
200 mg PO HS
Hold Instructions: await pcp clearance to resume
Discharge Orders:
Discharge Patient (As Directed); Ordered 07/25/24
Ordered By: Milagros Hickman
Care Plan Goals
Care Plan Goals:
Problem: Readiness for enhanced knowledge related to diagnosis and treatment plan
Goal: Understand your diagnosis and treatment plan needs, including medications if applicable.
Instructions: Know your diagnosis, underlying causes and treatment plan options, including medications if applicable. Consult with your health care team to learn about your diagnosis and treatment plan, including medications if applicable.
Discharge Date and Time
Discharge Date/Time: 07/25/24 13:20
Print Language: PAPUA [place] GU[place]

Documented by User: Titus Garcia DO 07/25/24 14:44
Discharge Summary
Discharge Data
Date of Admission: 07/23/24
Date of Discharge: 07/25/24
Discharge Plan
-
Patient Disposition: Home (Routine Discharge)
Discharge Diagnosis/Procedures: heart block
Condition: Fair
Diet: As tolerated
Activity: No strenuous activity
Additional Activity: see device instructions
Driving Restrictions: No driving for 1 week
Activity Restrictions/Additional Instructions:
See device instructions
Stand Alone Forms: DC Inst - Implanted Device
Referrals:
Glenn Zee MD [Active] - (Office will call with device check in appointment)
Pauline Hill MD [Family Provider] - in one to two weeks
Prescriptions:
New
acetaminophen 325 mg Tablet
650 mg PO Q4HPRN PRN (Reason: MILD PAIN) Qty: 24 0RF
amlodipine 2.5 mg tablet
2.5 mg PO DAILY Qty: 90 0RF
Continued
cholecalciferol (vitamin D3) 25 mcg (1,000 unit) Tablet
25 mcg PO DAILY
Held
ibuprofen 200 mg Tablet
200 mg PO HS
Hold Instructions: await pcp clearance to resume
Discharge Orders:
Discharge Patient (As Directed); Ordered 07/25/24
Ordered By: Milagros Hickman
Care Plan Goals
Care Plan Goals:
Problem: Readiness for enhanced knowledge related to diagnosis and treatment plan
Goal: Understand your diagnosis and treatment plan needs, including medications if applicable.
Instructions: Know your diagnosis, underlying causes and treatment plan options, including medications if applicable. Consult with your health care team to learn about your diagnosis and treatment plan, including medications if applicable.
Discharge Date and Time
Discharge Date/Time: 07/25/24 13:20
Print Language: PAPUA [place] GU[place]
[2024-07-25 12:12] VITALS: BP 153/139
[2024-07-25 12:14] VITALS: BP 150/68
--- NOTE | 2024-07-25 13:25 | PTCARENOTE ---
Patient discharged home.
== END 2024-07-25 13:20 | disposition home or self-care (01) | DRG 244 ==
LOC: IVU 19:51
PROVIDERS: Internal Medicine Cardiovascular Disease; Nurse Practitioner Family; ADMITTING PHYSICIAN Internal Medicine; ATTENDING PHYSICIAN Internal Medicine; CONSULT PHYSICIAN Student in an Organized Health Care Education/Training Program; EMERGENCY PHYSICIAN Emergency Medicine; FAMILY PHYSICIAN Family Medicine
PROC: 0JH606Z Insertion of Pacemaker, Dual Chamber into Chest Subcutaneous Tissue and Fascia, Open Approach (ICD-10-PCS; 2024-07-24)
PROC: 02H63JZ Insertion of Pacemaker Lead into Right Atrium, Percutaneous Approach (ICD-10-PCS; 2024-07-24)
PROC: 02HK3JZ Insertion of Pacemaker Lead into Right Ventricle, Percutaneous Approach (ICD-10-PCS; 2024-07-24)
DX: I44.2 Atrioventricular block, complete (principal); I10 Essential (primary) hypertension; E78.00 Pure hypercholesterolemia, unspecified; I35.0 Nonrheumatic aortic (valve) stenosis; J45.909 Unspecified asthma, uncomplicated; M19.90 Unspecified osteoarthritis, unspecified site; Z87.891 Personal history of nicotine dependence; Z96.652 Presence of left artificial knee joint; Z96.641 Presence of right artificial hip joint
CPT/HCPCS: 93308; 33208; 71045; 80048; 80053; 84443; 84484; 85025; 85027; 85730; 93005; 93321; 93325; 99291; C1785; C1892; C1898; Q9967

== ENCOUNTER → 2025-06-18 13:26 | Outpatient (REF) | payer MEDICARE, OTHER, SELFPAY | LOC: RCS 13:26 | PROVIDERS: ATTENDING PHYSICIAN Student in an Organized Health Care Education/Training Program; FAMILY PHYSICIAN Family Medicine | DX: I35.0 Nonrheumatic aortic (valve) stenosis (principal) | CPT/HCPCS: 93306 ==

== ENCOUNTER → 2025-08-18 09:52 | Outpatient (REF) | payer MEDICARE, OTHER, SELFPAY ==
[2025-08-18 10:58] LABS: Hematocrit 41.2 % (37.0-47.0); Hemoglobin 13.1 g/dL (12.0-16.0); Mean Corp Hgb Conc. 31.8 g/dL (33.0-37.0); Mean Corpuscular Volume 93.6 fL (81.0-99.0); Nucleated Red Blood Cells % 0 %; Platelet Count 189 10^3/uL (130-400); Red Cell Dist. Width 13.8 % (11.5-14.5)
[2025-08-18 12:40] LABS: Blood Urea Nitrogen 29 mg/dl (7-17); Calcium 9.4 mg/dl (8.4-10.2); Carbon Dioxide 27 mmol/L (22-30); Chloride 104 mmol/L (98-107); Glucose 100 mg/dl (70-99); Potassium 4.2 mmol/L (3.5-5.1); Sodium 139 mmol/L (135-145); eGFR > 60.00
== END ==
LOC: REG 09:52
PROVIDERS: ATTENDING PHYSICIAN Nurse Practitioner Adult Health; FAMILY PHYSICIAN Family Medicine; OTHER PHYSICIAN Student in an Organized Health Care Education/Training Program
DX: I35.0 Nonrheumatic aortic (valve) stenosis (principal)
CPT/HCPCS: 36415; 80048; 85025

== ENCOUNTER → 2025-08-26 12:20 | Outpatient (REF) | payer MEDICARE, OTHER, SELFPAY | LOC: RAD 12:20 | PROVIDERS: ATTENDING PHYSICIAN Internal Medicine Cardiovascular Disease; FAMILY PHYSICIAN Family Medicine | DX: I35.0 Nonrheumatic aortic (valve) stenosis (principal) | CPT/HCPCS: 74174; 75572; Q9967 ==